=== PATIENT | female | born 1945 | race Caucasian/White ===

== ENCOUNTER 2016-09-02 07:01 | Day surgery (SDC) | payer MEDICARE ==
--- NOTE | 2016-09-01 09:23 | HP ---
DATE OF CLINIC: 08/26/2016 JORGE ALBERTO HUMPHREY : 1945 PLANNED PROCEDURE: Left Knee Arthroscopic Partial Medial Meniscectomy DATE OF SURGERY: September 02, 2016 SURGEON: Franko Choi M.D. HISTORY OF PRESENT ILLNESS Jorge Alberto Humphrey is a 70 year old female. * Medication list reviewed with patient allergy list reviewed with patient. * Tried NSAIDS * Tried NSAIDS Celebrex 200mg prn * Has not tried Physical Therapy * Has not tried Injections This is a 70-year-old female who about two months ago had a twisting injury to her left knee and has had pain and difficulty bearing weight on it since that time. Prior to that she was very active and had no problems with this knee whatsoever. She now has pain that is mostly in the anterior portion of the knee as well as the medial knee. It hurts mostly when she rotates on it. She is able to bear weight. She wears a brace part-time. She has been taking Celebrex for a few weeks but it bothers her stomach. It does seem to help a little bit when she takes it, but it does not completely resolve the problem. She rates the pain a 5/10 and says that it is sharp and is exacerbated by weight bearing. After discussion and review of treatment options, both operative and non-operative, she has elected to proceed with surgery and presents today preoperatively. PAST MEDICAL AND SURGICAL HISTORY: Past medical and surgical history are as documented. CURRENT MEDICATION * CeleBREX 200 MG Capsule 1 once a day 0 days, 0 refills * [facility] Vitamin D3 1000 UNIT Tablet Chewable 1 once a day 0 days, 0 refills * GNP Vitamin C 250 MG Tablet 1 once a day 0 days, 0 refills * Ketoconazole 2 % Cream as needed 0 days, 0 refills * Pantoprazole Sodium 40 MG Tablet Delayed Release 1 once a day 0 days, 0 refills * Protonix 40 MG Tablet Delayed Release 1 once a day 0 days, 0 refills * Sertraline HCl 50 MG Tablet 1 once a day 0 days, 0 refills * Zoloft 50 MG Tablet 1 once a day 0 days, 0 refills PAST MEDICAL/SURGICAL HISTORY Reported: Medical: Depression. Surgical / Procedural: Prior surgery Ruptured ovary in 70's. SOCIAL HISTORY Behavioral: Caffeine use and non-smoker never smoked. Smoking status: Never smoker. Alcohol: Not using alcohol. Drug Use: Not using drugs. Work: Retired. ALLERGIES * No Known Allergies FAMILY HISTORY Children living 2 Family medical history Mother- Stroke REVIEW OF SYSTEMS No recent constitutional symptoms to include fevers and chills. No recent cardiovascular symptoms to include chest pain or palpitations. No recent respiratory symptoms to include shortness of breath or recent infections. PHYSICAL FINDINGS * Vitals taken 08/26/2016 02:15 pm BP-Sitting L 121/71 mmHg BP Cuff Size Regular Pulse Rate-Sitting 72 bpm Respiration Rate 16 per min Temp-Oral 97.6 F Height 65 in Weight 119 lbs 9.6 oz Body Mass Index 19.9 kg/m2 Body Surface Area 1.59 m2 Pain Level 3 Ears, Nose, Throat: * ENT: normal. Lungs: * Clear to auscultation. Cardiovascular: Heart Rate and Rhythm: * Normal. Abdomen: * Normal. Neurological: Motor: * Dominant Hand = Right Hand. Patient is a well-developed, well-nourished female in no acute distress. They are awake, alert and conversant throughout the encounter. CARDIOVASCULAR: Intact peripheral pulses on bilateral lower extremities. No significant edema on inspection of bilateral lower extremities. NEUROLOGIC: Patient had intact coordinated composite motion of the bilateral lower extremities and sensation intact to light touch in all distributions of bilateral lower extremities. PSYCHIATRIC: Patient was oriented to person, place and time and displayed appropriate mood and affect during the encounter. SKIN: Exam of the skin on bilateral lower extremities showed no significant scars, lesions, rashes or masses. FOCUSED MUSCULOSKELETAL EXAM: The patient is ambulating with mild antalgia on the left side. She is wearing a brace, with removal of her brace she has minimal effusion, no erythema and no ecchymosis. She has tenderness to palpation anteriorly and anteromedially. She has a positive patella grind. Her patella tracks midline. She has no patellar instability. She is able to perform a straight leg raise. She has 5/5 strength in flexion and extension at the knee. Range of motion is from 0 to about 110 degrees of flexion with pain as she goes into flexion. She is stable to varus and valgus stress. She is negative anterior drawer and negative Christy and negative posterior drawer and negative pivot shift. Patricia's test only mildly exacerbates her symptoms, but it is painful for her to go into flexion to do it. The leg is warm and well perfused distally with intact sensation. IMAGING: X-rays demonstrates a mild medial compartment narrowing without other significant degenerative changes. There may be a little bit of narrowing in the lateral side of her patellofemoral joint as well. No significant osteophytes. She has an MRI which I only have report for, not the images that indicates that she has a displaced complex tear of the posterior horn and body of the medial meniscus with some displacement of a fragment into the notch and some mild medial compartment degenerative changes. ASSESSMENT A 70-year-old active female with no prior problems with her knee, who now has an acute twisting event and symptoms that are consistent with a medial meniscus tear. THERAPY * Patient fall risk screen negative. * Patient eligible for fall risk assessment. * Patient received fall risk assessment. PLAN * Complex tear of medial mensc, current injury, l knee, init Percocet 5-325 MG TABS, Take 1-2 tablets by mouth every 4-6 hours as needed for pain, 30 days, 0 refills * Knee Arthroscopy (Left) with PMM CARE TEAM Natan Bhardwaj MD [facility] SURGICAL CONSENT We have discussed surgical options including left knee arthroscopic PMM and non-operative management. The patient was counseled in detail regarding the diagnosis, treatment options available, prognosis of each treatment option and the potential risks and complications. The risks of surgery include, but are not limited to, anesthetic , neurovascular complications, pulmonary embolism, deep vein thrombosis, wound dehiscence, failure of any or all of the discussed procedures, infection of the joint or surrounding soft tissue, need for revision surgery, chronic pain, limitations in activities of daily living, inability to return to work, and loss of normal range of motion or functional use of the extremity. There is the possibility of failure over time that may require additional operative or non-operative treatment. The patient acknowledged that there are a number of perioperative risks not mentioned here and would still like to proceed. The patient is aware of and understands these risks, and wishes to proceed with the proposed surgical procedure and other procedures as indicated at the time of surgery. We will have the patient see their PCP for a preoperative medical risk assessment. The preoperative instructions were reviewed with the patient and all questions were answered. PB/sg
[~2016-09-02 07:01] MED LIST: BUPIVACAINE 0.5% W/EPI SDV 30 ML VIAL ONE; CEFAZOLIN SODIUM 2 GRAM PREMIX 100 ML IV ONE; CEFAZOLIN SODIUM 2 GRAM PREMIX 100 ML IV PRN; FENTANYL 100 MCG/2 ML VIAL ONE; IV START KIT ONE; LACTATED RINGERS 1,000 ML ONE; MIDAZOLAM HCL 1 MG/ML 2ML VIAL ONE
[2016-09-02] MEDS ORDERED: DEXAMETHASONE SOD PHOS 4 MG/1 ML VIAL ONE (09:04)
[2016-09-02] MEDS ORDERED: PROPOFOL 20 ML IV ONE (09:04)
[2016-09-02] MEDS ORDERED: ONDANSETRON 4 MG/2ML 2 ML VIAL ONE (09:04)
[2016-09-02] MEDS ORDERED: FENTANYL 100 MCG/2 ML VIAL IV PRN (09:24)
[2016-09-02] MEDS ORDERED: MORPHINE SULFATE 4 MG/ML SYRINGE IV PRN (09:24)
[2016-09-02] MEDS ORDERED: PROMETHAZINE HCL 25 MG/ML VIAL IM PRN (09:24)
[2016-09-02] MEDS ORDERED: ONDANSETRON 4 MG/2ML 2 ML VIAL IV PRN (09:24)
[2016-09-02] MEDS ORDERED: LACTATED RINGERS 1,000 ML IV SCH ×2 (09:30→10:03)
--- NOTE | 2016-09-02 09:36 | PCMBPN ---
Brief Post Op Note: Date of Procedure: 09/02/16 Start Time: 0900 Preoperative Diagnosis: 1. left knee medial meniscus tear Postoperative Diagnosis: 1. Same Procedure: left knee partial medial meniscectomy Surgeon: Franko Choi MD Assist: Bridgette Emmanuel Anesthesia: Pako Miller Findings: as above Condition: stable to PACU Complications: none IV Fluids: 900 mLs of LR Urine Output: 0 mLs Estimated Blood Loss: 5 mLs Tourniquet Time: 22 min at 250 mm Hg Specimens: none Implants: none Drains: none Franko Choi MD
[2016-09-02] MEDS ORDERED: HYDROMORPHONE HCL 1 MG/ML SYRINGE IV PRN (10:03)
[2016-09-02] MEDS ORDERED: ACETAMINOPHEN 325 MG TABLET PO PRN (10:03)
[2016-09-02] MEDS ORDERED: OXYCODONE HCL 5 MG TABLET PO PRN (10:03)
[2016-09-02] MEDS ORDERED: DIPHENHYDRAMINE HCL 50 MG/1 ML VIAL IV PRN (10:03)
[2016-09-02] MEDS ORDERED: OXYCODONE HCL 5 MG TABLET ONE (11:39)
--- NOTE | 2016-09-03 10:06 | OP ---
Francisca Humphrey : 1945 [id number] DATE: 09/02/2016 PREOPERATIVE DIAGNOSIS: Left knee medial meniscus tear. POSTOPERATIVE DIAGNOSIS: Left knee medial meniscus tear. PROCEDURE: Left knee partial medial meniscectomy. SURGEON: Franko Choi M.D. INTAKE COORDINATOR: Bridgette Emmanuel. ANESTHESIA: Yohan Miller. SPECIMENS: No material was sent to the laboratory. ESTIMATED BLOOD LOSS: 5 mL. FLUID REPLACED: 900 mL of crystalloid. TOURNIQUET TIME: 22 minutes at 250 mmHg. IMPLANTS: None. DRAINS: None. INDICATION: A 70-year-old female with acute onset of left knee pain after a twisting injury. Physical exam and radiographic findings support medial meniscal tear. Risks, benefits, alternatives of arthroscopy with partial medial meniscectomy were discussed with the patient and she elected to proceed with surgery. Informed consent was obtained and documented on the chart. Patient was placed on the schedule for surgery. DESCRIPTION OF PROCEDURE: The patient was identified in the preoperative holding area and marked with an indelible marker. Taken to the operating room where she was placed in the supine position on the operating room table. All bony prominences were padded and a well padded precalibrated nonsterile tourniquet was placed on her left upper thigh. She received perioperative antibiotics. She was prepped and draped in the usual sterile fashion for surgery. Operative timeout was preformed confirmed by all members of the operative team. A standard lateral portal was created and a 30 degree viewing arthroscope was inserted in the knee. Objects were directed medially and the medial portal was localized and a spinal needle then created in the standard fashion. Probe was inserted through the medial portal and used in completion of diagnostic arthroscopy with the follow findings. The medial meniscus showed a complex tear of the posterior horn. The medial femoral condyle and medial tibial plateau were largely intact with just some small areas of chondral softening. ACL and PCL were intact. The lateral compartment showed an intact lateral meniscus and good chondral surface in the lateral tibial plateau and lateral femoral condyle. The patellofemoral joint had intact chondral surfaces. There were no significant loose bodies and no synovial plica. The probe was exchanged for an arthroscopic biter which was used to resect back the medial meniscus to a stable rim. This was then exchanged for an arthroscopic Karla shaver which smoothed down the contour of the medial meniscus. We then debrided the torn fragments. At this point, we felt did address the patient intraarticular pathology so the camera and instruments were removed from the knee. Portal sites were closed with 4-0 Nylon. A sterile dressings of Xeroform, fluffs, Webril, and a DAX bandage was applied. Tourniquet was deflated, drapes were removed, patient was awakened from anesthesia, extubated in the operating room, transferred to the stretcher, and taken postoperatively to postanesthesia care in stable condition. There were no observed intraoperative complications during this procedure. JOB: [id number]
== END 2016-09-02 12:33 | disposition home or self-care (01) ==
LOC: SDC 07:01
PROVIDERS: ATTEND Orthopaedic Surgery
PROC: 0SBD4ZZ Excision of Left Knee Joint, Percutaneous Endoscopic Approach (ICD-10-PCS; principal; 2016-09-02)
DX: S83.232A Complex tear of medial meniscus, current injury, left knee, initial encounter (principal); X50.1XXA Overexertion from prolonged static or awkward postures, initial encounter; F32.9 Major depressive disorder, single episode, unspecified